=== PATIENT | female | born 1940 | race Two or more races ===

== ENCOUNTER 2021-03-17 08:57 | Outpatient (CLI) | payer OTHER | END 2021-03-17 09:04 | disposition home or self-care (01) | LOC: RX STUDY 08:57 | PROVIDERS: ATTEND Family Medicine | DX: R13.19 Other dysphagia (principal) ==

== ENCOUNTER 2025-08-27 06:00 | Day surgery (SDC) | payer OTHER ==
[2025-08-22 11:20] VITALS: BP 169/72
[2025-08-22 11:24] LABS: INR 0.98
[~2025-08-27] VITALS: Ht 165.1 cm; Wt 61.2 kg
[~2025-08-27 06:00] MED LIST: ALLERGY RELIE15.8 ML NASAL; COZAAR50 MG PO; FOLIC ACID20 MG PO; PROLIA60 MG/1 ML SQ; SERTRALINE20 MG/1 ML; SIMVASTATIN5 MG; SYNTHROID100 MCG PO; TREXALL7.5 MG; ZOCOR20 MG PO; ZYRTEC10 MG PO
[2025-08-27] MEDS ORDERED: hydrALAZINE HCL 20 MG VIAL ONE (09:49)
== END 2025-08-27 11:50 | disposition home or self-care (01) ==
LOC: CIR.AMB 06:00
PROVIDERS: ATTEND Internal Medicine
DX: C25.0 Malignant neoplasm of head of pancreas (principal); D37.8 Neoplasm of uncertain behavior of other specified digestive organs; R93.3 Abnormal findings on diagnostic imaging of other parts of digestive tract; R93.5 Abnormal findings on diagnostic imaging of other abdominal regions, including retroperitoneum

== ENCOUNTER 2025-08-28 18:17 | Emergency (ER) | payer OTHER ==
[~2025-08-28] VITALS: Ht 165.1 cm; Wt 61.7 kg
[2025-08-28] MEDS ORDERED: KETOROLAC TROMETHAMINE 60 MG VIAL IM STA (19:09)
[2025-08-28] MEDS ORDERED: FAMOTIDINE/PF 20 MG/2 ML VIAL IV PUSH STA (19:09)
[2025-08-28] MEDS ORDERED: 0.9 % SODIUM CHLORIDE 1,000 ML IV STA (19:09)
[2025-08-28] MEDS ORDERED: KETOROLAC TROMETHAMINE 60 MG VIAL IM ONE (19:22)
[2025-08-28] MEDS ORDERED: FAMOTIDINE/PF 20 MG/2 ML VIAL ONE (19:22)
[2025-08-28 20:07] LABS: BASO % 0.2 % (0.1-1.2); EOS # 0.00 (0.04-0.54); EOS % 0.0 % (0.7-7.0); LYMPH # 0.64 (1.18-3.74); LYMPH % 5.4 % (19.3-53.1); MEAN PLATELET VOLUME 11.70 fl (9.4-12.4); MONO # 1.46 (0.24-0.82); NEUT # 9.62 (1.56-6.13); NEUT % 81.6 % (34.0-71.1); RED CELL DISTRIBUTION WIDTH 14.7 % (11.6-14.4)
[2025-08-28 20:23] LABS: MONO % 12.4 % (4.7-12.5)
[2025-08-28 20:31] LABS: ALT/SGPT 134.0 U/L (12-78); AST/SGOT 167.0 U/L (15-37); BILIRUBIN TOTAL 0.97 mg/dL (0.3-1.2); BUN CREA RATIO 16.0 (7.0-25.0); CREATININE SERUM 0.63 mg/dL (0.55-1.02); GFR 90.03; GLOBULINA 4.3 G/DL (2.4-3.5); GLUCOSE FASTING 145.0 mg/dL (65-100); OSMOLALITY SERUM 279.0 MOSM/KG (275-295)
[2025-08-30] MEDS ORDERED: ZOCOR40 MG PO (14:55)
== END 2025-08-29 01:53 | disposition home or self-care (01) ==
LOC: ER 18:17
PROVIDERS: Physician Assistant Medical
DX: R10.11 Right upper quadrant pain (principal); K81.9 Cholecystitis, unspecified; K59.00 Constipation, unspecified; R93.5 Abnormal findings on diagnostic imaging of other abdominal regions, including retroperitoneum; C25.9 Malignant neoplasm of pancreas, unspecified; I10 Essential (primary) hypertension; Z88.8 Allergy status to other drugs, medicaments and biological substances
CPT/HCPCS: 36415; 96365; 96372; 99282; J1885; J3490

== ENCOUNTER 2025-08-30 14:16 | Inpatient (IN) | payer OTHER ==
[~2025-08-30] VITALS: Ht 167.6 cm; Wt 61.2 kg
[2025-08-30] MEDS ORDERED: ZOCOR40 MG PO (14:55)
--- NOTE | 2025-08-30 14:56 | NUR ---
PACIENTE ALERTA Y ORIENTADA X3 QUIEN REFIERE QUE EL PASADO LUNES LE REALIZARON NATI BIOPSIA DEL PANCREAS Y COMENZO CON SAVANNAH DOLOR ABDOMINAL EN EL CUADRANTE SUPERIOR DERECHO. (ESTEFANI QUE LE REALIZO LA ENDOSCOPIA FUE DRA MATHEWS). SE MONITOREAN S/V Y SE UBICA PACIENTE.
[2025-08-30] MEDS ORDERED: MORPHINE SULFATE 2 MG/ML SYRINGE IV STA ×2 (15:27→16:54)
--- NOTE | 2025-08-30 16:15 | NUR ---
RN. HOLMAN ORIENTA PTE SOBRE TRATAMIENTO MEDICO Y LO EJECUTA EN OSULLIVAN TOTALIDAD
[2025-08-30 16:31] LABS: BASO % 0.2 % (0.1-1.2); EOS # 0.03 (0.04-0.54); EOS % 0.2 % (0.7-7.0); LYMPH # 0.84 (1.18-3.74); LYMPH % 6.3 % (19.3-53.1); MEAN PLATELET VOLUME 11.20 fl (9.4-12.4); MONO # 0.49 (0.24-0.82); MONO % 3.7 % (4.7-12.5); NEUT # 11.97 (1.56-6.13); NEUT % 89.3 % (34.0-71.1); RED CELL DISTRIBUTION WIDTH 14.8 % (11.6-14.4)
[2025-08-30 17:01] LABS: INR 1.1
[2025-08-30 17:10] LABS: ALT/SGPT 229.0 U/L (12-78); AST/SGOT 206.0 U/L (15-37); BILIRUBIN TOTAL 5.67 mg/dL (0.3-1.2); BILIRUBIN,CONJUGATED 4.74 mg/dL (0.0-0.2); BUN CREA RATIO 18.0 (7.0-25.0); CREATININE SERUM 0.73 mg/dL (0.55-1.02); GFR 75.95; GLOBULINA 4.6 G/DL (2.4-3.5); GLUCOSE FASTING 105.0 mg/dL (65-100); OSMOLALITY SERUM 271.0 MOSM/KG (275-295)
[2025-08-30] MEDS ORDERED: ATORVASTATIN CALCIUM 10 MG TABLET PO SCH (22:28)
[2025-08-30] MEDS ORDERED: ENOXAPARIN SODIUM 40 MG/0.4 ML SYRINGE SUBCUTANEO SCH (22:29)
[2025-08-30] MEDS ORDERED: ONDANSETRON HCL 4 MG in 0.9 % SODIUM CHLORIDE 50 ML IV PRN (22:30)
[2025-08-30] MEDS ORDERED: MORPHINE SULFATE 2 MG/ML SYRINGE IV PRN (22:30)
[2025-08-30] MEDS ORDERED: LOSARTAN POTASSIUM 50 MG TABLET PO SCH (22:50)
[2025-08-31] MEDS ORDERED: PIPERACILLIN/TAZOBACTAM SODIUM 3.375 GM in 0.9 % SODIUM CHLORIDE 100 ML IV SCH
[2025-08-31 03:00] LABS: BILIRUBIN TOTAL 2.58 mg/dL (0.3-1.2); BILIRUBIN,CONJUGATED 1.69 mg/dL (0.0-0.2)
[2025-08-31 03:12] VITALS: BP 118/78
[2025-08-31 04:05] VITALS: BP 136/71; O2SAT 96
[2025-08-31 05:47] LABS: URINE APPEARANCE Clear; URINE BILIRRUBIN Negative (NEGATIVE); URINE BLOOD Negative; URINE COLOR Dark Yellow; URINE GLUCOSE Negative (NEGATIVE); URINE KETONE 15 (NEGATIVE); URINE LEUKOCYTE Negative; URINE NITRATE Negative; URINE PROTEIN Trace (NEGATIVE); URINE UROBILINOGEN 0.2 E.U./dl
[2025-08-31 05:50] LABS: URINE BACTERIA 33.5 uL (0.0-1933); URINE EPITHELIAL CELLS 2.7 uL (0.0-38.8); URINE RBC 17.3 uL (0.0-20.8)
[2025-08-31] MEDS ORDERED: LEVOTHYROXINE SODIUM 100 MCG TABLET PO SCH (06:00)
[2025-08-31] MEDS ORDERED: 0.9 % SODIUM CHLORIDE 1,000 ML IV SCH (07:30)
[2025-08-31 07:42] LABS: URINE CAST 0.00 uL (0.0-1.40); URINE WBC 1.6 uL (0.0-23.2)
[2025-08-31 08:27] VITALS: BP 124/57; O2SAT 97
[2025-08-31 09:42] LABS: ALT/SGPT 198.0 U/L (12-78); AST/SGOT 142.0 U/L (15-37); BILIRUBIN TOTAL 2.75 mg/dL (0.3-1.2)
[2025-08-31 09:45] LABS: BILIRUBIN,CONJUGATED 1.09 mg/dL (0.0-0.2)
[2025-08-31] MEDS ORDERED: DEXTROSE 50 % IN WATER 0.5 G/ML VIAL IV PRN (11:30)
[2025-08-31] MEDS ORDERED: INSULIN LISPRO 1,000 UNIT/10 ML UNITS SUBCUTANEO PRN (11:30)
[2025-08-31 16:00] VITALS: BP 118/59; O2SAT 95
[2025-08-31] MEDS ORDERED: AMINO ACIDS 1 EACH TABLET PO SCH (17:00)
[2025-09-01] VITALS: BP 130/82; O2SAT 99
[2025-09-01 07:35] LABS: BASO % 0.5 % (0.1-1.2); EOS # 0.11 (0.04-0.54); EOS % 1.2 % (0.7-7.0); LYMPH # 1.40 (1.18-3.74); LYMPH % 14.7 % (19.3-53.1); MEAN PLATELET VOLUME 12.90 fl (9.4-12.4); MONO # 0.17 (0.24-0.82); MONO % 1.8 % (4.7-12.5); NEUT # 7.79 (1.56-6.13); NEUT % 81.6 % (34.0-71.1); RED CELL DISTRIBUTION WIDTH 14.6 % (11.6-14.4)
[2025-09-01 08:00] VITALS: BP 130/74; O2SAT 93
[2025-09-01 13:34] LABS: ABG PH 7.398 (7.35-7.45); ABG PO2 65.5 mmHg (80-100); BICARBONATE 21.6 mmol/l (23-25)
[2025-09-01 13:42] LABS: o2 21 %
[2025-09-01 16:00] VITALS: BP 127/55; O2SAT 97
[2025-09-02 00:26] VITALS: BP 102/51; O2SAT 95
[2025-09-02 07:37] LABS: BUN CREA RATIO 28.0 (7.0-25.0); CREATININE SERUM 0.61 mg/dL (0.55-1.02); GFR 93.44; GLUCOSE FASTING 86.0 mg/dL (65-100); OSMOLALITY SERUM 284.0 MOSM/KG (275-295)
[2025-09-02 08:00] VITALS: BP 130/80; O2SAT 97
[2025-09-02] MEDS ORDERED: MORPHINE SULFATE 2 MG/ML CARTRIDGE IV PRN (08:00)
[2025-09-02] MEDS ORDERED: MORPHINE SULFATE 2 MG/ML SYRINGE IV PRN (08:00)
[2025-09-02] MEDS ORDERED: MAGNESIUM HYDROXIDE 30 ML BLIST.PACK PO NR (15:45)
[2025-09-02] MEDS ORDERED: MINERAL OIL 30 ML BLIST.PACK PO NR (15:45)
[2025-09-02] MEDS ORDERED: LACTULOSE 20 G/30 ML BLIST.PACK PO NR (15:45)
[2025-09-02 16:00] VITALS: BP 136/71; O2SAT 96
[2025-09-03 00:13] VITALS: BP 125/72; O2SAT 95
[2025-09-03 08:25] LABS: BASO % 0.6 % (0.1-1.2); EOS # 0.20 (0.04-0.54); EOS % 3.1 % (0.7-7.0); LYMPH # 0.92 (1.18-3.74); LYMPH % 14.1 % (19.3-53.1); MEAN PLATELET VOLUME 12.70 fl (9.4-12.4); MONO # 0.53 (0.24-0.82); MONO % 8.1 % (4.7-12.5); NEUT # 4.79 (1.56-6.13); NEUT % 73.5 % (34.0-71.1); RED CELL DISTRIBUTION WIDTH 14.6 % (11.6-14.4)
[2025-09-03 09:05] LABS: BUN CREA RATIO 26.0 (7.0-25.0); CREATININE SERUM 0.5 mg/dL (0.55-1.02); GFR 117.54; GLUCOSE FASTING 109.0 mg/dL (65-100); OSMOLALITY SERUM 288.0 MOSM/KG (275-295)
[2025-09-03] MEDS ORDERED: POTASSIUM CHLORIDE IN WATER 40 MEQ/100 ML PIGGYBAG IV ONE (09:52)
[2025-09-03] MEDS ORDERED: GLUCAGON 1 MG VIAL ONE (12:56)
[2025-09-03] MEDS ORDERED: IOVERSOL 320 MG/ML - 50 ML VIAL IV ONE (12:57)
[2025-09-03] MEDS ORDERED: SUGAMMADEX SODIUM 200 MG/2 ML VIAL IV ONE (13:30)
[2025-09-03] MEDS ORDERED: POTASSIUM CHLORIDE IN WATER 40 MEQ/100 ML PIGGYBAG IV NR (17:00)
[2025-09-03] MEDS ORDERED: POTASSIUM CHLORIDE 20MEQ/100ML H2O PB IV SCH (17:00)
[2025-09-04 01:41] VITALS: BP 112/68; O2SAT 100
[2025-09-04 09:47] VITALS: BP 146/72; O2SAT 96
[2025-09-04] MEDS ORDERED: MORPHINE SULFATE 2 MG/ML SYRINGE IV PRN (12:30)
[2025-09-04] MEDS ORDERED: MORPHINE SULFATE 4 MG/ML CARTRIDGE IV PRN (13:06)
[2025-09-04] MEDS ORDERED: MAGNESIUM HYDROXIDE 30 ML BLIST.PACK PO NR (14:00)
[2025-09-04] MEDS ORDERED: MINERAL OIL 30 ML BLIST.PACK PO NR (14:15)
[2025-09-04] MEDS ORDERED: LACTULOSE 20 G/30 ML BLIST.PACK PO NR (14:15)
[2025-09-04 15:43] VITALS: BP 125/75; O2SAT 98
[2025-09-04] MEDS ORDERED: BUPIVACAINE HCL/MPF 0.5% 30ML VIAL ONE ×2 (17:18→19:03)
[2025-09-04] MEDS ORDERED: IOVERSOL 320 MG/ML - 50 ML VIAL IV ONE ×2 (17:18→19:03)
[2025-09-05 01:37] VITALS: BP 112/70; O2SAT 99
[2025-09-05 07:56] LABS: BUN CREA RATIO 33.0 (7.0-25.0); CREATININE SERUM 0.43 mg/dL (0.55-1.02); GFR 139.89; GLUCOSE FASTING 104.0 mg/dL (65-100); OSMOLALITY SERUM 284.0 MOSM/KG (275-295)
[2025-09-05 09:15] VITALS: BP 135/68; O2SAT 97
[2025-09-05] MEDS ORDERED: NA PHOS,M-B/NA PHOS,DI-BA 1 BOTTLE ENEMA RECTAL STA (14:40)
[2025-09-05 15:20] LABS: BASO % 0.3 % (0.1-1.2); EOS # 0.16 (0.04-0.54); EOS % 1.8 % (0.7-7.0); LYMPH # 1.03 (1.18-3.74); LYMPH % 11.9 % (19.3-53.1); MEAN PLATELET VOLUME 13.00 fl (9.4-12.4); MONO # 0.65 (0.24-0.82); MONO % 7.5 % (4.7-12.5); NEUT # 6.75 (1.56-6.13); NEUT % 77.7 % (34.0-71.1); RED CELL DISTRIBUTION WIDTH 14.9 % (11.6-14.4)
[2025-09-05 15:35] LABS: ALT/SGPT 175.0 U/L (12-78); AST/SGOT 160.0 U/L (15-37); BILIRUBIN TOTAL 0.91 mg/dL (0.3-1.2); BILIRUBIN,CONJUGATED 0.53 mg/dL (0.0-0.2); BUN CREA RATIO 21.0 (7.0-25.0); CREATININE SERUM 0.61 mg/dL (0.55-1.02); GFR 93.44; GLOBULINA 3.4 G/DL (2.4-3.5); GLUCOSE FASTING 129.0 mg/dL (65-100); OSMOLALITY SERUM 281.0 MOSM/KG (275-295)
[2025-09-05] MEDS ORDERED: POTASSIUM CHLORIDE IN WATER 40 MEQ/100 ML PIGGYBAG IV NR (16:00)
[2025-09-05 16:40] VITALS: BP 112/74; O2SAT 95
[2025-09-06 00:40] VITALS: BP 91/58; O2SAT 98
[2025-09-06 05:39] VITALS: BP 134/80; O2SAT 100
[2025-09-06 06:57] LABS: BUN CREA RATIO 16.0 (7.0-25.0); CREATININE SERUM 0.55 mg/dL (0.55-1.02); GFR 105.3; GLUCOSE FASTING 97.0 mg/dL (65-100); OSMOLALITY SERUM 282.0 MOSM/KG (275-295)
[2025-09-06 07:30] VITALS: BP 129/71; O2SAT 98
[2025-09-06] MEDS ORDERED: METHOTREXATE SODIUM 2.5 MG TABLET PO SCH (09:00)
[2025-09-06] MEDS ORDERED: GLUCAGON 1 MG VIAL ONE (16:48)
[2025-09-06] MEDS ORDERED: IOVERSOL 320 MG/ML - 50 ML VIAL IV ONE (16:49)
[2025-09-06] MEDS ORDERED: SUGAMMADEX SODIUM 200 MG/2 ML VIAL IV ONE (16:53)
[2025-09-06] MEDS ORDERED: hydrALAZINE HCL 20 MG VIAL ONE (17:00)
[2025-09-06] MEDS ORDERED: SODIUM CL 0.9% 100 ML IV.SOLN IV ONE (23:00)
[2025-09-07 00:51] VITALS: BP 141/76; O2SAT 96
[2025-09-07 06:22] LABS: BASO % 0.2 % (0.1-1.2); EOS # 0.02 (0.04-0.54); EOS % 0.2 % (0.7-7.0); LYMPH # 0.74 (1.18-3.74); LYMPH % 6.6 % (19.3-53.1); MEAN PLATELET VOLUME 12.50 fl (9.4-12.4); MONO # 0.85 (0.24-0.82); MONO % 7.6 % (4.7-12.5); NEUT # 9.43 (1.56-6.13); NEUT % 84.6 % (34.0-71.1); RED CELL DISTRIBUTION WIDTH 14.7 % (11.6-14.4)
[2025-09-07 07:15] LABS: ALT/SGPT 96.0 U/L (12-78); AST/SGOT 51.0 U/L (15-37); BILIRUBIN TOTAL 1.07 mg/dL (0.3-1.2); BILIRUBIN,CONJUGATED 0.5 mg/dL (0.0-0.2); BUN CREA RATIO 31.0 (7.0-25.0); CREATININE SERUM 0.32 mg/dL (0.55-1.02); GFR 196.73; GLOBULINA 3.2 G/DL (2.4-3.5); GLUCOSE FASTING 91.0 mg/dL (65-100); OSMOLALITY SERUM 285.0 MOSM/KG (275-295)
[2025-09-07 08:42] VITALS: BP 149/73; O2SAT 98
[2025-09-07] MEDS ORDERED: ACETAMINOPHEN 325 MG TABLET PO PRN (09:00)
[2025-09-07 16:00] VITALS: BP 144/82; O2SAT 97
[2025-09-07 19:34] LABS: MONONUCLEAR 44.3 %; POLYMORPHONUCLEAR 55.7 %
[2025-09-07 20:03] LABS: GLU PLEURAL FLUID 143.0 mg/dl; LDH PLEURAL FLUID 181.0 U/L; TP PLEURAL FLUID 3.0 g/dl
[2025-09-07] MEDS ORDERED: GABAPENTIN 100 MG CAPSULE PO STA (21:47)
[2025-09-07] MEDS ORDERED: MORPHINE SULFATE 4 MG/ML CARTRIDGE IV STA (21:48)
[2025-09-07] MEDS ORDERED: MORPHINE SULFATE 4 MG/ML CARTRIDGE IV PRN (22:00)
[2025-09-08 01:28] VITALS: BP 132/62; O2SAT 99
[2025-09-08] MEDS ORDERED: GABAPENTIN 100 MG CAPSULE PO SCH (05:00)
[2025-09-08 08:00] VITALS: BP 125/75; O2SAT 98
[2025-09-08] MEDS ORDERED: MORPHINE SULFATE 2 MG/ML CARTRIDGE IV PRN (11:38)
[2025-09-08] MEDS ORDERED: DICLOFENAC SODIUM 100 GM GEL..GRAM. TOP SCH (14:00)
[2025-09-08 16:00] VITALS: BP 116/66; O2SAT 98
[2025-09-09 00:37] VITALS: BP 120/75; O2SAT 98
[2025-09-09] MEDS ORDERED: MINERAL OIL 30 ML BLIST.PACK PO STA (07:55)
[2025-09-09] MEDS ORDERED: LACTULOSE 20 G/30 ML BLIST.PACK PO STA (07:56)
[2025-09-09] MEDS ORDERED: MAGNESIUM HYDROXIDE 400 MG/5 ML ML PO STA (07:56)
[2025-09-09 08:00] VITALS: BP 102/78; O2SAT 98
[2025-09-09] MEDS ORDERED: SENNOSIDES 1 TAB TABLET PO SCH (09:00)
[2025-09-09] MEDS ORDERED: MAGNESIUM HYDROXIDE 30 ML BLIST.PACK PO STA (09:17)
[2025-09-09 16:55] VITALS: BP 137/69; O2SAT 95
[2025-09-10 01:21] VITALS: BP 135/71; O2SAT 100
[2025-09-10 08:00] VITALS: BP 152/75; O2SAT 96
[2025-09-10 16:52] VITALS: BP 130/69; O2SAT 95
[2025-09-10] MEDS ORDERED: MORPHINE SULFATE 2 MG/ML CARTRIDGE IV PRN (19:15)
[2025-09-10 21:27] VITALS: BP 158/66
[2025-09-11 00:44] VITALS: BP 129/57; O2SAT 97
[2025-09-11 08:00] VITALS: BP 130/75
[2025-09-11 16:21] VITALS: BP 120/72; O2SAT 100
== END 2025-09-11 18:12 | disposition home or self-care (01) | DRG 409 ==
LOC: ER 14:17 → SURH 22:20 → SEC-K 08-31 00:29 → SURG 08-31 00:31 → SURH 09-01 14:16
PROVIDERS: General Practice; Physician Assistant Medical; Radiology Vascular & Interventional Radiology; ADMIT Student in an Organized Health Care Education/Training Program; ATTEND Student in an Organized Health Care Education/Training Program
PROC: BW21ZZZ Computerized Tomography (CT Scan) of Abdomen and Pelvis (ICD-10-PCS; principal; 2025-08-30)
PROC: BF37ZZZ Magnetic Resonance Imaging (MRI) of Pancreas (ICD-10-PCS; 2025-08-30)
PROC: 4A033R1 Measurement of Arterial Saturation, Peripheral, Percutaneous Approach (ICD-10-PCS; 2025-09-01)
PROC: BB24YZZ Computerized Tomography (CT Scan) of Bilateral Lungs using Other Contrast (ICD-10-PCS; 2025-09-03)
PROC: 0W993ZZ Drainage of Right Pleural Cavity, Percutaneous Approach (ICD-10-PCS; 2025-09-03)
PROC: 0FC98ZZ Extirpation of Matter from Common Bile Duct, Via Natural or Artificial Opening Endoscopic (ICD-10-PCS; 2025-09-03)
PROC: 0F993ZZ Drainage of Common Bile Duct, Percutaneous Approach (ICD-10-PCS; 2025-09-04)
PROC: 0FP44DZ Removal of Intraluminal Device from Gallbladder, Percutaneous Endoscopic Approach (ICD-10-PCS; 2025-09-06)
PROC: 0F798DZ Dilation of Common Bile Duct with Intraluminal Device, Via Natural or Artificial Opening Endoscopic (ICD-10-PCS; 2025-09-06)
PROC: 0W993ZZ Drainage of Right Pleural Cavity, Percutaneous Approach (ICD-10-PCS; 2025-09-07)
DX: K83.1 Obstruction of bile duct (principal); C25.9 Malignant neoplasm of pancreas, unspecified; J90 Pleural effusion, not elsewhere classified; K86.9 Disease of pancreas, unspecified; R93.5 Abnormal findings on diagnostic imaging of other abdominal regions, including retroperitoneum; R10.9 Unspecified abdominal pain; E80.6 Other disorders of bilirubin metabolism; K81.9 Cholecystitis, unspecified; L89.152 Pressure ulcer of sacral region, stage 2; Z51.5 Encounter for palliative care